=== PATIENT | female | born 1955 | race Caucasian/White ===

== ENCOUNTER 2017-08-15 14:45 | Outpatient (CLI) | payer OTHER ==
[~2017-08-15] VITALS: Ht 162.6 cm; Wt 77.3 kg
[2017-08-15 15:17] VITALS: BP 121/60; PULSE 78; RESP 16; Ht 162.6 cm; Wt 77.3 kg
--- NOTE | 2017-08-15 18:37 | CONS ---
Date/Time of Note Date/Time of Note DATE: 08/15/17 TIME: 18:37 Assessment/Plan Assessment/Plan Additional Assessment/Plan [facility] INITIAL OUTPATIENT CONSULTATION NOTE DATE OF CONSULTATION: 08/15/2017 PLACE OF SERVICE: [facility] ASSESSMENT AND PLAN: A very-pleasant and unfortunate 61-year-old lady with multiple comorbid issues, worse of which is her cirrhosis which is unfortunately complicated by presence of severe portal hypertension as indicated by her significant thrombocytopenia, splenomegaly as well as varices and history of gastric varices, presenting with a rather complex lower abdominal wall incisional hernia with multiple prior operations. This combination of comorbidities and previous surgical history, with the patient at extraordinarily high risk for morbidity and mortality. At a minimum, her hernia needs to be addressed by a hernia specialist given the complexity that I see on the scans. In addition to above, the patient's liver condition requires that she be taken care of at a center that has a liver transplant program. Fortunately we have 3 of those academic centers within driving distance of where she lives. She already has a relationship at [facility] and I strongly recommended that we the patient back to [facility] as well as close treatment by you Dr. Zamora regarding her cirrhosis and management of ascites. My overall impression is that with more aggressive diuretics and blood pressure control, that the patient will notice decrease in the amount of ascites that seems to be present within her hernia sacs. At a minimum, this will make any operative interventions a bit safer to do with less chance of complications. Once the patient has medically been optimized better, that would be a time to attempt surgical repair if deemed appropriate by [facility] or 1 of the other to transplant centers. I certainly advised the patient against doing operative interventions at [facility] hospitals without transplant program. I explained all the above to the patient (no family present) in detail and answered all questions. Patient appeared to understand and agreed with plans With above assessment, I've recommended the followin. Medical optimization with regards to ascites and portal hypertension 2. Close medical management with you Dr. Zamora 3. Consideration for repeat axial images after medical optimization to reassess the hernias as well as the liver itself 4. Strongly recommend that the patient gets care at [facility] or 1 of our other transplant centers if she requires any surgical intervention. This definitely applies to management of her hernia which should be cold managed between a hernia specialist as well as a liver transplant program Thank you very much for having me involved in the care of this very pleasant patient and wonderful family. If you have any questions, please feel free to contact me at [phone]. Nature of presenting problem: High severity Please note that, given the extensive number of diagnoses or management options , the extensive amount and/or complexity of data needed to be reviewed, and I risk of complications and/or morbidity or mortality, this qualifies as high complexity type of decision-making. Disclaimers: 1. Inadvertent spelling and grammatical errors are likely due to electronic health record (EHR)/dictation software used and do not reflect on the quality of delivered patient care. 2. The electronic timestamp recorded on this note does not necessarily reflect the actual date and time of the visit or the service. 3. Portions of this note may have been created through electronic templates and computer algorithms that might bring in information either from the system or from other physicians and providers. Please note that such information may or may not contain errors, the occurrence of which are outside of my control. In general (but not always) this happens either in the beginning or at the end of the note. The portion of the note that I have created are generally done in 1 continuous block of text, flanked at the beginning and at the end by " ", and entered into one field in the EHR. 4. There may be other unanticipated errors in the note that are outside of my control. I can only attest to the portions of the note that I have created. Updated clinical summary: A very-pleasant and unfortunate 61-year-old lady with multiple comorbid issues, worse of which is her cirrhosis which is unfortunately complicated by presence of severe portal hypertension as indicated by her significant thrombocytopenia, splenomegaly as well as varices and history of gastric varices, presenting with a rather complex lower abdominal wall incisional hernia with multiple prior operations. Comorbidities: 1. BMI 29.2 2. Liver cirrhosis, discovered October 2016 with an index variceal bleed treated at all at [facility] where an EGD demonstrated large gastroesophageal varices and banding was not done presumably for fear of causing bleeding at that time, TIPS was recommended. However, portal vein thrombus on imaging was found and interventional radiology decided not to do tips. CINTHIA and anti-smooth muscle antibody was found to be positive. Diagnosis of autoimmune hepatitis possibly leading to cirrhosis was entertained in chart with no other definitive mention of further workup. 3. Status post orthotopic liver transplant evaluation at [facility] with approximately 8 visits in outpatient center. Meld score in October was 11. Patient was declined for transplant at the time due to her meld score and how well she was doing. 4. Complications of cirrhosis includes above-mentioned gastric varices as well as thrombocytopenia and significant portal hypertension as demonstrated by her CT findings, splenomegaly, platelet count in the 100 range in the past as low as 63 in June 2017, and portal vein thrombosis. 5. Anemia 6. Pyuria 7. Bladder prolapse 8. Abdominal hernia without obstruction and without gangrene, recurrent. Patient was evaluated at [facility] in May 2017 for the hernia and was found to be too high risk for operative intervention 9. Status post transfusion October 2016 10. Status post cholecystectomy and appendectomy at age 12 [facility] 11. Total hysterectomy 1986 12. History of bladder lift 13. Report of right inguinal hernia repair in the past CONSULTATION REQUESTED BY: Paul Zamora MD Dear Dr. Zamora, Thank you very much for the opportunity to participate in the care of this very pleasant lady and her wonderful family. HISTORY OF PRESENT ILLNESS: The patient is a very pleasant but unfortunate 61- year-old lady with above-mentioned comorbidities whom we were kindly asked consult regarding management of her abdominal wall hernias. She has a very complicated history including recent diagnosis of cirrhosis which unfortunately was complicated by thrombocytopenia with platelet counts as low as 60s, portal vein thrombosis, abdominal varices and splenomegaly, and multiple operations starting at age 12 (? Cholecystectomy and appendectomy) followed by hernia repairs, one of which was mentioned as a right inguinal hernia repair. Over the course of the last 6 months, the patient has noted a bulge in the right lower quadrant which seems to have enlarged in size. She describes sensation of fluid within it. It is easily reducible and there is minimal tenderness in the region. No episodes of bowel obstruction in this area. No recent operative interventions in the area. She also has a complex history of bladder prolapse and mention of the bladder lifting in the past as well. Also status post total hysterectomy. No other major complaints during my interview with her. I also got a sense that the patient does not trust traditional medical management as much and has been trying to manage her ascites using herbal therapies and natural remedies. ALLERGIES: NO KNOWN DRUG ALLERGIES MEDICATIONS Documented in the electronic records and reviewed by me. Please see the electronic records for details. SOCIAL HISTORY: The patient has 2 children, both of whom live in [place]. She was 7 years ago. She was born in [place] and came to [facility] when she was 23 years old. She has 4 living sisters and 2 living brothers.-Tob; -ETOH;-IVDU FAMILY HISTORY: Possible liver cirrhosis paternal grandfather. There are no significant medical, surgical or oncologic issues in the family as reported by the patient or reflected in the chart. REVIEW OF SYSTEMS: Other than mentioned above, there were no other pertinent positives or pertinent negatives in an otherwise complete 14 point review of systems. PHYSICAL EXAMINATION GENERAL: The patient appears to be a very pleasant lady of descent sitting in a chair, appearing stated age,] and otherwise in no acute distress. BMI: 29.2 VITAL SIGNS: AVSS (please also see auto important data if available as well as the electronic records) HEENT: Normocephalic and atraumatic. Extraocular muscles and hearing are grossly intact bilaterally and symmetrically. Sclerae are nonicteric. Oral cavity is clear; oral mucosa appear to be pink and moist. Dentition: fair. NECK: Supple. There is no lymphadenopathy or JVD. There is no submental, submandibular or supraclavicular lymphadenopathy. CHEST: Rises symmetrically with each breath; patient is breathing comfortably. There are no audible wheezes, rales or rhonchi on the gross exam. HEART: Pulse is regular and palpable on the right wrist. Capillary refill is normal. Carotid pulses are palpable bilaterally and symmetrically in the neck. EXTREMITIES: Lower extremities contain no pitting edema around the ankles bilaterally and symmetrically. ABDOMEN: Abdomen is soft, nontender and nondistended. There are multiple scars on the abdomen, the most prominent of which is a right paramedian scar that extends from the subcostal region all the way to the pelvic brim. Towards the end of the scar, there are one or more scars that are diagonal pointing towards the pubic bone. In this area, there is a large grapefruit sized mass which seems to be filled with fluid. Protruding from this mass there is another area of skin that seems to be protruding even further, again appears to be filled with fluid. I had the patient lay down and this area demonstrates fluid wave with Valsalva maneuver. The area is not particularly tender to palpation. There is no erythema or calor to the exam of this region. The rest of the abdomen appears to be soft. No evidence of obvious organomegaly, caput medusae, engorged subcutaneous veins, or other abnormalities. There are no peritoneal signs or guarding. SKIN: Appears to be pink and feels warm to touch. NEUROLOGIC: Awake, alert, and follows commands appropriately. LABORATORY DATA: For full details, please see the office chart. The low platelet count of 60 was mentioned above. IMAGING: See electronic chart. Please note that I've personally reviewed all pertinent available images and I agree in general with their overall reported findings. CT abdomen and pelvis [facility] 02/11/2017: Low-density fluid collection with septation in the right lower pelvis with mass-effect on adjacent bladder. This area appears to be connected with an additional septated fluid collection in the right lower abdominal wall. Findings likely represent a peritoneal inclusion cyst. Other differential considerations include seroma, less likely abscess, correlate clinically. Cirrhotic liver was seen. No definitive focal liver lesion was seen. Stable portal vein thrombus was found and splenomegaly was noted. Small bowel thickening was seen likely related to hepatic enteropathy. The thrombus in the portal vein was thought to be nonocclusive and it was in the main portal vein extending into the right portal vein. The hernia was thought to be stable compared to images from October 2016 and differential of ascites is also mention. There was portosystemic collaterals. My own interpretation agrees with most of the above as well as presence of severe portal hypertension as noted by significant gastric and other types of varices in the abdominal cavity. Consultation Date/Type/Reason Admit Date/Time Exam/Review of Systems Vital Signs Vitals Vital Signs Date Time Temp Pulse Resp B/P Pulse Ox O2 Delivery O2 Flow Rate FiO2 08/15/17 15:17 97.8 78 16 121/60 99 Room Air TRINI FALLON M.D. Aug 15, 2017 18:37
== END 2017-08-15 17:00 | disposition home or self-care (01) ==
LOC: HPC 14:45
PROVIDERS: ATTEND Transplant Surgery
DX: K76.6 Portal hypertension (principal); K74.60 Unspecified cirrhosis of liver; N39.0 Urinary tract infection, site not specified; N81.10 Cystocele, unspecified; Z98.890 Other specified postprocedural states
CPT/HCPCS: G0463